=== PATIENT | male | born 1985 ===

== ENCOUNTER 2017-11-27 19:32 | Emergency (ER) | payer SELFPAY ==
[2017-11-27 19:54] VITALS: BP 132/84; PULSE 76; RESP 16; TEMP 98.2; O2SAT 99
[2017-11-27 20:30] LABS: BASO # 0.1 K/uL (0.0-0.2); BASO % 0.8 % (0.0-2.0); EOS # 0.3 K/uL (0.0-0.7); EOS % 2.3 % (0.0-4.0); HEMOGLOBIN 14.4 g/dL (12.0-18.0); LYMPH # 5.4 K/uL (1.0-4.3); MEAN CELL VOLUME 84.3 fl (80.0-94.0); MEAN CORPUSCULAR HEMOGLOBIN 28.8 pg (27.0-31.0); MEAN CORPUSCULAR HGB CONC 34.1 g/dL (33.0-37.0); MEAN PLATELET VOLUME 8.7 fl (7.2-11.7); MONO # 0.9 K/uL (0.0-0.8); MONO % 8.6 % (0.0-10.0); NEUT # 4.3 K/uL (1.8-7.0); NEUT % 39.3 % (50.0-75.0); NRBC % 0.1 % (0.0-0.0); RBC 5.01 Mil/uL (4.40-5.90); RED CELL DISTRIBUTION WIDTH 12.5 % (11.5-14.5)
[2017-11-27 20:31] LABS: URINE BILIRUBIN NEGATIVE (NEGATIVE); URINE BLOOD NEGATIVE (NEGATIVE); URINE CLARITY CLEAR (Clear); URINE COLOR COLORLESS (YELLOW); URINE GLUCOSE (UA) NEG (Normal); URINE LEUKOCYTE ESTERASE NEG Leu/uL (Negative); URINE NITRATE NEGATIVE (NEGATIVE); URINE PROTEIN NEGATIVE (NEGATIVE); URINE UROBILINOGEN 0.2-1.0 mg/dL (0.2-1.0)
[2017-11-27 20:36] LABS: SQUAMOUS EPITHIAL 2 /hpf (0-5); URINE BACTERIA RARE (<OCC)
[2017-11-27 20:43] LABS: ALB/GLOB RATIO 1.2 (1.0-2.1); ALBUMIN 4.4 g/dL (3.5-5.0); ALT/SGPT 135 U/L (21-72); AST/SGOT 51 U/L (17-59); BLOOD UREA NITROGEN 13 mg/dl (9-20); CALCIUM 9.6 mg/dL (8.4-10.2); GFR AFRICAN-AMERICAN > 60; GFR NON-AFRICAN AMERICAN > 60; LIPASE 86 U/L (23-300)
--- NOTE | 2017-11-27 22:15 | ED PDOC ---
HPI: Abdomen Time Seen by Provider: 11/27/17 20:02 Chief Complaint (Nursing): Abdominal Pain Chief Complaint (Provider): Abdominal Pain History Per: Patient History/Exam Limitations: no limitations Onset/Duration Of Symptoms: Days Current Symptoms Are (Timing): Intermittent Episodes Pain Scale Rating Of: 9 Associated Symptoms: Loss Of Appetite Additional Complaint(s): Ramos is a 32 year old, male who presents to the emergency department complaining of upper abdominal pain associated with poor appetite for 1 week. Patient reports pain as intermittent and sharp. Rates pain as 9/10. Patient reports pain worse after eating food. Denies chest pain, vomiting, nausea, shortness of breath, fever or cough. PMD: Provider TBD Past Medical History Reviewed: Historical Data, Nursing Documentation, Vital Signs Vital Signs: Last Vital Signs Temp 98.2 F 11/27/17 19:51 Pulse 76 11/27/17 19:51 Resp 16 11/27/17 19:51 BP 132/84 11/27/17 19:51 Pulse Ox 99 11/28/17 00:46 - Medical History PMH: No Chronic Diseases - Surgical History Surgical History: No Surg Hx - Family History Family History: States: Unknown Family Hx - Home Medications Home Medications: Ambulatory Orders Medication Instructions Recorded Famotidine [Pepcid] 20 mg PO Q12 #14 tab 11/27/17 - Allergies Allergies/Adverse Reactions: Allergies Allergy/AdvReac Type Severity Reaction Status Date / Time No Known Allergies Allergy Verified 11/27/17 19:50 Review of Systems ROS Statement: Except As Marked, All Systems Reviewed And Found Negative Constitutional: Positive for: Other (Poor appetite). Negative for: Fever Cardiovascular: Negative for: Chest Pain Respiratory: Negative for: Cough, Shortness of Breath Gastrointestinal: Positive for: Abdominal Pain (Upper). Negative for: Nausea, Vomiting Physical Exam - Reviewed Nursing Documentation Reviewed: Yes Vital Signs Reviewed: Yes - Physical Exam Appears: Positive for: Non-toxic Head Exam: Positive for: ATRAUMATIC, NORMAL INSPECTION, NORMOCEPHALIC Skin: Positive for: Normal Color, Warm, Dry Eye Exam: Positive for: Normal appearance, EOMI, PERRL ENT: Positive for: Normal ENT Inspection Neck: Positive for: Normal Cardiovascular/Chest: Positive for: Regular Rate, Rhythm Respiratory: Positive for: Normal Breath Sounds. Negative for: Respiratory Distress Gastrointestinal/Abdominal: Positive for: Tenderness (Left upper quadrant), Other (Epigastric pain) Back: Positive for: Normal Inspection Extremity: Positive for: Normal ROM. Negative for: Deformity Neurologic/Psych: Positive for: Alert, Oriented (x 3) - Laboratory Results Result Diagrams: 11/27/17 20:24 11/27/17 20:24 - ECG O2 Sat by Pulse Oximetry: 99 (RA) Pulse Ox Interpretation: Normal Medical Decision Making Medical Decision Making: Time: 20:08 Impression: 32 year old male with epigastric pain Plan: - CMP - Lipase - ED Urine Dipstick - CBC - Influenza A B - Urinalysis Stat Time: 20:24 Abnormal Alanine Aminotransferase (135 U/L) Time: 20:37 - Pepcid 20 mg IV STAT - Toradol 15 mg IV STAT - Abdomen Complete Ultrasound Time: 2303 --US ABD FINDINGS: Liver: There is diffuse increased echogenicity consistent with steatosis. No mass. No intrahepatic bile duct dilation. Gallbladder: Nonfasting examination, the gallbladder is contracted no gallstones. Common bile duct: Unremarkable as visualized. No stones. 3.1 mm cyst Pancreas: Unremarkable as visualized. Kidneys: Unremarkable. No stones. No solid mass. No hydronephrosis. LEFT 10 cm x 4.2 cm x 5 cm . RIGHT 4.6 cm of 4.4 cm x 10.3 cm Spleen: Unremarkable. No splenomegaly. Measure 8.7 cm Aorta: Unremarkable. No aneurysm. Inferior vena cava: Unremarkable. IMPRESSION: 1. Hepatic steatosis. 2. Nonfasting contracted gallbladder without stones 3. Otherwise negative examination Time: 2300 --Upon provider reevaluation, patient is feeling better, medically stable and requires no further treatment in the ED at this time. Labs revealed no significant clinical abnormality. Patient will be discharged home with Rx for Pepcid 20mg. Counseling was provided and all questions were answered regarding diagnosis and need for follow up with [facility]. There is agreement to discharge plan. Return if symptoms persist or worsen. Clinical Impression: Gastritis Scribe Attestation: Documented by Dereck Long, acting as a scribe for Monty Campuzano MD Provider Scribe Attestation: All medical record entries made by the Scribe were at my direction and personally dictated by me. I have reviewed the chart and agree that the record accurately reflects my personal performance of the history, physical exam, medical decision making, and the department course for this patient. I have also personally directed, reviewed, and agree with the discharge instructions and disposition. Disposition - Clinical Impression Clinical Impression: Gastritis - Patient ED Disposition Is Patient to be Admitted: No Counseled Patient/Family Regarding: Studies Performed, Diagnosis - Disposition Referrals: [facility] [Outside] Disposition: Routine/Home Disposition Time: 23:00 Condition: STABLE Prescriptions: Famotidine [Pepcid] 20 mg PO Q12 #14 tab Instructions: Gastritis (ED) Forms: [facility] (Lithuanian) Print Language: CZECH
--- NOTE | 2017-11-29 13:19 | US ---
HISTORY: Abdominal pain COMPARISON: No prior TECHNIQUE: Sonographic evaluation of the abdomen. FINDINGS: LIVER: Measures 15.5 cm. Liver demonstrates smooth contour however increased echogenicity most likely representing fatty infiltration however other infiltrative hepatocellular disease process not excluded. . No mass. No intrahepatic bile duct dilatation. GALLBLADDER: Gallbladder is contracted due to nonfasting state. No evidence of intraluminal gallbladder calculi. No pericholecystic fluid collections or sonographic Bowman sign. COMMON BILE DUCT: Measures three mm. No stones. No dilatation. PANCREAS: Unremarkable as visualized. No mass. No ductal dilatation. RIGHT KIDNEY: Measures 10.4 x 4.6 x 4.4cm. Normal echogenicity. No calculus, mass, or hydronephrosis. LEFT KIDNEY: Measures 10.1 x 4.3 x 5.0cm. Normal echogenicity. No calculus, mass, or hydronephrosis. SPLEEN: Normal in size and contour. No mass. AORTA: No aneurysmal dilatation. IVC: Unremarkable. OTHER FINDINGS: None. IMPRESSION: Probable fatty infiltration however other infiltrative hepatocellular disease process not excluded. Gallbladder is contracted due to nonfasting state. No definitive evidence of intraluminal gallbladder calculi.
== END 2017-11-28 00:52 | disposition home or self-care (01) ==
LOC: H.ER 19:32
DX: K29.70 Gastritis, unspecified, without bleeding (principal)
CPT/HCPCS: 76700; 80053; 81003; 83690; 85025; 87804; 99282; J1885